=== PATIENT | female | born 1950 | race Caucasian/White ===

== ENCOUNTER 2021-09-26 15:00 | Emergency (ER) | payer OTHER ==
[~2021-09-26] VITALS: Ht 170.2 cm; Wt 61.2 kg
--- NOTE | 2021-09-26 15:02 | NUR ---
AAOX3, BIBRA 84 from home c/o generalized weakness since yesterday, SBP=99/34. Bilateral strong and equal teaching young. Resp is even and unlabored with no apparent distress. Skin is warm and dry. Dr Candelaria at for eval.
[2021-09-26] MEDS ORDERED: IV NS 0.9% 1,000 ML BAG IV ONE (15:30)
[2021-09-26 15:41] LABS: BASOPHILS % (AUTO) 0.5 % (0.0-2.0); EOSINOPHILS % (AUTO) 2.8 % (0.0-6.0); HEMATOCRIT 38 % (33-45); HEMOGLOBIN 12.5 g/dL (11.5-14.8); LYMPHOCYTES # (AUTO) 1.5 K/uL (0.8-4.8); LYMPHOCYTES % (AUTO) 15.9 % (20.0-44.0); MEAN CORPUSCULAR HGB CONC 33 g/dl (31.0-36.0); MEAN CORPUSCULAR VOLUME 85 fL (82-100); MONOCYTES # (AUTO) 0.9 K/uL (0.1-1.30); MONOCYTES % (AUTO) 9.6 % (2.0-12.0); NEUTROPHILS # (AUTO) 6.7 K/uL (1.8-8.9); NEUTROPHILS % (AUTO) 71.2 % (43.0-81.0); PLATELET COUNT (AUTO) 365 K/uL (150-450); RED BLOOD CELL COUNT(AUTO) 4.46 MIL/uL (4.0-5.2); WHITE BLOOD COUNT (AUTO) 9.5 K/uL (4.3-11.0)
[2021-09-26 15:53] LABS: CALCIUM, SERUM 8.9 mg/dL (8.5-10.1); CARBON DIOXIDE 27 mmol/L (21-32); CHLORIDE 102 mmol/L (98-107); CREATININE 1.2 mg/dL (0.6-1.3); GLUCOSE 108 mg/dL (74-106); POTASSIUM 4.1 mmol/L (3.5-5.1); SODIUM SERUM 136 mmol/L (136-145); UREA NITROGEN, BLOOD 18 mg/dL (7-18)
[2021-09-26] MEDS ORDERED: ATOR10TA PO (15:55)
[2021-09-26] MEDS ORDERED: LISI10TA29 PO (15:55)
[2021-09-26] MEDS ORDERED: OMEP-99 PO (15:55)
[2021-09-26] MEDS ORDERED: AMLO-213 PO (15:55)
[2021-09-26] MEDS ORDERED: NORT25CA PO (15:56)
[2021-09-26] MEDS ORDERED: SERT100T12 PO (15:56)
[2021-09-26 15:59] LABS: ALANINE AMINOTRANSFERASE 15 U/L (12-78); ALBUMIN 3.6 g/dL (3.4-5.0); ALKALINE PHOSPHATASE 80 U/L (46-116); ASPARTATE AMINOTRANSFERASE 15 U/L (15-37); BILIRUBIN,DIRECT 0.1 mg/dL (0.0-0.2); BILIRUBIN,TOTAL 0.3 mg/dL (0.2-1.0)
--- NOTE | 2021-09-26 16:11 | NUR ---
Dr Candelaria at for re-eval.
--- NOTE | 2021-09-26 16:16 | NUR ---
IV removed. Catheter intact and site benign. Pressure and 4x4 applied to site. No bleeding noted.Patient discharged to home in stable condition. Written and verbal after care instructions given. Patient verbalizes understanding of instruction.
[2021-09-26 16:38] VITALS: BP 136/69
== END 2021-09-26 16:39 | disposition home or self-care (01) ==
LOC: ER 15:03
DX: I95.9 Hypotension, unspecified (principal); R42 Dizziness and giddiness; Z88.2 Allergy status to sulfonamides; Z79.899 Other long term (current) drug therapy
CPT/HCPCS: 99285; 96360; 70450; 71045; 93005; 84145; 85025; 80048; 87040 ×2; 83605; 80076; 36415; 84484; 85730; J7030